=== PATIENT | male | born 1985 | race Caucasian/White ===

== ENCOUNTER 2022-05-13 13:50 | Outpatient (CLI) | payer OTHER ==
--- NOTE | 2022-05-13 18:04 | MRI Report ---
PROCEDURE: LUMBAR SPINE WO INDICATIONS: SPONDYLOSIS TECHNIQUE: Noncontrast sagittal T1 spin echo and T2 fast echo, sagittal STIR, axial T1 and T2 fast spin echo thr ough the lumbar spine. In cases with scoliosis, additional coronal T2 fast spin echo may be performe d. COMPARISON: None. FINDINGS: Image quality: Excellent. Alignment and Curvature: There is normal bony alignment. Bone Marrow: Marrow is of normal overall signal. No acute vertebral body compression fractures. Spinal Cord: Conus medullaris terminates at the L1-L2 level. Visualized cord demonstrates normal si gnal and size. Paraspinous Soft Tissues: No paravertebral masses. T12-L1: Normal in appearance. L1-L2: Normal in appearance. L2-L3: Disc bulge. Facet hypertrophy. No canal stenosis. Mild bilateral foraminal stenosis. L3-L4: Bilateral facet hypertrophy. No significant canal stenosis. Mild right foraminal narrowing. Moderate left foraminal narrowing with mild flattening deformity on the exiting left L3 nerve root. L4-L5: There is posterior disc bulge and facet hypertrophy. There is mild central canal stenosis. T here is right foraminal annulus tear plus foraminal disc protrusion resulting in moderate to severe r ight foraminal narrowing and right foraminal L4 nerve root impingement. Mild to moderate left foramin al narrowing. L5-S1: Facet hypertrophy. No canal stenosis or significant foraminal stenosis. IMPRESSION: 1. At L4-L5, there is mild central canal stenosis. There is right foraminal annulus tear plus foramin al disc protrusion impinging on the right L4 nerve root in the right foramen. 2. Multilevel facet arthropathy. Comment: Does this patient have a right L4 radiculitis. Reviewed by: Wilton Harris MD on 05/13/2022 6:03 PM PST Approved by: Wilton Harris MD on 05/13/2022 6:03 PM PST Station ID: [id number]
== END 2022-05-13 13:51 | disposition home or self-care (01) ==
LOC: DI 13:50
PROVIDERS: ATTEND Internal Medicine
DX: M47.817 Spondylosis without myelopathy or radiculopathy, lumbosacral region (principal); M47.816 Spondylosis without myelopathy or radiculopathy, lumbar region; M51.36 Other intervertebral disc degeneration, lumbar region; M48.061 Spinal stenosis, lumbar region without neurogenic claudication

== ENCOUNTER 2023-06-29 17:39 | Emergency (ER) | payer OTHER ==
[2023-06-29 18:30] VITALS: BP 132/78; O2SAT 100
--- NOTE | 2023-06-29 19:58 | ED Physician Documentation ---
PD HPI UPPER EXT INJURY - Stated complaint Stated Complaint: L THUMB LAC - Chief complaint Chief Complaint: Laceration - History obtained from History obtained from: Patient - History of Present Illness Location: Left, Finger (thumb) Type of injury: Laceration Where injury occurred: Home Timing - onset: How many hours ago (1) Pain level max: 3 Pain level now: 0 Improved by: Rest Worsened by: Moving Associated symptoms: No: Weakness, Numbness, Tingling Contributing factors: No: Anticoagulated - Additonal information Additional information: 38-year-old male presents to the emergency department for laceration to the left thumb. He states he was cutting green onions at home when he looked at the TV and accidentally cut his finger. Tetanus up-to-date. No numbness or tingling. No other lacerations. Review of Systems Constitutional: denies: Fever, Chills Nose: denies: Rhinorrhea / runny nose, Congestion GI: denies: Vomiting Skin: denies: Rash Musculoskeletal: denies: Neck pain, Back pain Neurologic: denies: Headache PD PAST MEDICAL HISTORY - Past Medical History Past Medical History: Yes Cardiovascular: None Respiratory: None Neuro: None Endocrine/Autoimmune: None GI: None : None HEENT: None Psych: None Musculoskeletal: None Derm: None - Past Surgical History Past Surgical History: Yes HEENT: Other - Present Medications Home Medications: Ambulatory Orders Medication Instructions Recorded Confirmed No Known Home Medications 06/29/23 06/29/23 - Allergies Allergies/Adverse Reactions: Allergies Allergy/AdvReac Type Severity Reaction Status Date / Time No Known Drug Allergies Allergy Verified 06/29/23 18:24 - Social History Does the pt smoke?: No Smoking Status: Never smoker Does the pt drink ETOH?: Yes Does the pt have substance abuse?: No - Immunizations Immunizations are current?: Yes - POLST Patient has POLST: No PD ED PE NORMAL - Vitals Vital signs reviewed: Yes - General General: Alert and oriented X 3, No acute distress - HEENT HEENT: Moist mucous membranes - Neck Neck: Supple, no meningeal sign - Derm Derm: Warm and dry - Extremities Extremities: Other (L thumb - 1.5 cm linear laceration distal tip partially through the nail. no bony exposure) - Neuro Neuro: Alert and oriented X 3 - Psych Psych: Normal mood, Normal affect Results - Vitals Vitals: Vital Signs - 24 hr 06/29/23 18:18 Temperature 36.9 C Heart Rate 52 L Respiratory 17 Rate Blood Pressure 132/78 H O2 Saturation 100 Oxygen O2 Source Room air Procedures - Laceration (location) L thumb Length in cm: 1.5 Wound type: Linear Neurovascular status: Sensory intact, Motor intact, Vascular intact Wound preparation: Irrigated copiously NS, Wound explored, To the base Skin layer closure: Dermabond Other: Patient tolerated well, No complications, Neurovascular intact, Dressing applied, Tetanus UTD PD Medical Decision Making - ED course Complexity details: considered differential, d/w patient ED course: Laceration repaired with Dermabond. Tolerated well. Neurovascular intact. Warnings of infection and instructions on wound care given at bedside. Also counseled on how to minimize scarring. Patient counseled regarding signs and symptoms for which I believe and urgent re-evaluation would be necessary. Patient with good understanding of and agreement to plan and is comfortable going home at this time This document was made in part using voice recognition software. While efforts are made to proofread this document, sound alike and grammatical errors may occ ur. Departure - Departure Disposition: 01 Home, Self Care Clinical Impression: Thumb laceration Qualifiers: Encounter type: initial encounter Damage to nail status: with damage Foreign body presence: without foreign body Laterality: left Qualified Code(s): S61.112A - Laceration without foreign body of left thumb with damage to nail, initial encounter Condition: Good Instructions: ED Laceration Ext Skin Glue Follow-Up: your,doctor as needed [Other] Comments: Your laceration was repaired with dermabond tonight. Keep the wound clean. do not apply ointment as this may dissolve the glue. Return for redness, swelling, or drainage from the wound. Forms: PCP List
== END 2023-06-29 20:13 | disposition home or self-care (01) ==
LOC: ED 17:39
DX: S61.112A Laceration without foreign body of left thumb with damage to nail, initial encounter (principal); W26.0XXA Contact with knife, initial encounter; Y93.G1 Activity, food preparation and clean up; Y92.009 Unspecified place in unspecified non-institutional (private) residence as the place of occurrence of the external cause
CPT/HCPCS: 12001; 99282